=== PATIENT | female | born 1940 | race Caucasian/White ===

== ENCOUNTER 2025-10-03 07:23 | Day surgery (SDC) | payer MEDICARE, OTHER, SELFPAY ==
[2025-10-03] VITALS (11 sets, daily range): BP systolic 142–170; BP diastolic 76–98; PULSE 65–83; RESP 14–19; TEMP 36.2–36.9; O2SAT 92–100; BMI 20.9
--- NOTE | 2025-10-03 01:07 | W.PM.OPSFHP ---
Same Day Surgery H&P Indication for Procedure/HPI DATE OF PROCEDURE: October 03, 2025 CHIEF COMPLAINT/INDICATIONFOR SURGICAL PROCEDURE: postmenopausal bleeding PREOP DIAGNOSIS: postmenopausal bleeding PLANNED PROCEDURE: Operation Date: 10/03/25 09:00 Proposed Procedures p Hysteroscopy w/ Endometrial Sampling 38569 36191 N95.0 N93.9(Not Applicable) - Tab Martell MD s POSSIBLE Enodmetrial Poylpectomy(Not Applicable) - Tab Martell MD Medications/Allergies* Home Medications ?Medication ?Instructions ?Recorded ?Confirmed ?Type apixaban 5 mg tablet (Eliquis) 5 mg PO BID 08/02/25 10/02/25 History ascorbic acid (vitamin C) 1,000 mg 1,000 mg PO DAILY 08/02/25 10/02/25 History capsule aspirin 81 mg tablet 81 mg PO DAILY 08/02/25 10/02/25 History calcium carbonate 600 mg PO DAILY 08/02/25 10/02/25 History cholecalciferol (vitamin D3) 125 125 mcg PO DAILY 08/02/25 10/02/25 History mcg (5,000 unit) capsule lovastatin 40 mg tablet 40 mg PO DAILY 08/02/25 10/02/25 History metoprolol tartrate 25 mg tablet 100 mg PO DAILY 08/02/25 10/02/25 History omega-3 fatty acids 1,000 mg 1,000 mg PO DAILY 08/02/25 10/02/25 History capsule omeprazole 20 mg capsule,delayed 20 mg PO DAILY 08/02/25 10/02/25 History release Allergies/Adverse Reactions Allergy/AdvReac Type Severity Reaction Status Date / Time acetaminophen (From Contac Allergy Severe ALGY-Anaphy Verified 10/02/25 11:12 Cold-Flu Day and Night) laxis chlorpheniramine (From Allergy Severe ALGY-Anaphy Verified 10/02/25 11:12 Contac Cold-Flu Day and laxis Night) phenylephrine (From Contac Allergy Severe ALGY-Anaphy Verified 10/02/25 11:12 Cold-Flu Day and Night) laxis Pertinent History/Comorbid Conditions* Family History (Updated 08/02/25 @ 15:29 by Darne Ordoñez CNA) Heart disease Father Grandmother Grandfather Hyperlipidemia Father Sister Social History Smoking and tobacco/nicotine status: former use of tobacco/nicotine Pertinent Exam Findings alert, oriented x 3, clear to auscultation bilaterally and regular rate & rhythm Recommendations Surgery/Procedure today Coding Level of Care Code Acute Code for Chg Fwd
--- NOTE | 2025-10-03 09:44 | ANES.PREANE2 ---
Pre-Anesthetic Assessment Height/Weight: Height 1.6 m Weight 53.524 kg Temp Pulse Resp BP Pulse Ox O2 Del Method 98.4 F 65 17 170/89 98 Room Air 10/03/25 07:44 10/03/25 07:44 10/03/25 07:44 10/03/25 07:44 10/03/25 07:44 10/03/25 07:44 Preop Diagnosis: postmenopausal bleeding Operation Date: 10/03/25 09:00 Proposed Procedures p Hysteroscopy w/ Endometrial Sampling [id number] N95.0 N93.9(Not Applicable) - Tab Martell MD s POSSIBLE Enodmetrial Poylpectomy(Not Applicable) - Tab Martell MD Familial anesthetic complications: None Was Beta Reena taken within 24 hours: Yes Was Clonidine taken within 24 hours: N/A Last intake: Intake Last Liquid Date 10/02/25 Last Liquid Time 22:00 Last Solid Date 10/02/25 Last Solid Time 22:00 Social No alcohol and No tobacco Exam alert, oriented x 3, clear to auscultation bilaterally and regular rate & rhythm Airway Dentition: caps CV/HEM Atrial Fibrillation and Hypertension Metabolic Hyperlipidemia Anesthetic Plan ASA status: 3 Anesthesia: General Risk of > 500 ml blood loss (7ml/kg in children): No Medications/Allergies Home Medications ?Medication ?Instructions ?Recorded ?Confirmed ?Last Taken ?Type apixaban 5 mg tablet (Eliquis) 5 mg PO BID 08/02/25 10/02/25 09/27/25 History ascorbic acid (vitamin C) 1,000 mg 1,000 mg PO DAILY 08/02/25 10/02/25 10/02/25 History capsule aspirin 81 mg tablet 81 mg PO DAILY 08/02/25 10/02/25 09/27/25 History calcium carbonate 600 mg PO DAILY 08/02/25 10/02/25 10/02/25 History cholecalciferol (vitamin D3) 125 125 mcg PO DAILY 08/02/25 10/02/25 10/02/25 History mcg (5,000 unit) capsule lovastatin 40 mg tablet 40 mg PO DAILY 08/02/25 10/02/25 10/02/25 History metoprolol tartrate 25 mg tablet 100 mg PO DAILY 08/02/25 10/03/25 10/03/25 History omega-3 fatty acids 1,000 mg 1,000 mg PO DAILY 08/02/25 10/02/25 10/02/25 History capsule omeprazole 20 mg capsule,delayed 20 mg PO DAILY 08/02/25 10/02/25 10/02/25 History release Allergies Allergy/AdvReac Type Severity Reaction Status Date / Time acetaminophen (From Contac Allergy Severe ALGY-Anaphy Verified 10/02/25 11:12 Cold-Flu Day and Night) laxis chlorpheniramine (From Allergy Severe ALGY-Anaphy Verified 10/02/25 11:12 Contac Cold-Flu Day and laxis Night) phenylephrine (From Contac Allergy Severe ALGY-Anaphy Verified 10/02/25 11:12 Cold-Flu Day and Night) laxis PFSH Anesthesia Family History (Updated 08/02/25 @ 15:29 by Daren Ordoñez CNA) Father Heart disease Hyperlipidemia Sister Hyperlipidemia Grandmother Heart disease Grandfather Heart disease Social History Smoking and tobacco/nicotine status: former use of tobacco/nicotine
--- NOTE | 2025-10-03 09:48 | W.PM.OPSUD ---
Surgery/Procedure H&P Update DATE OF PROCEDURE: October 03, 2025 DATE H&P PERFORMED: 08/02/25 H&P UPDATE INFORMATION: I have reviewed H&P completed within last 30 days, I have examined patient prior to procedure and No changes to prior documentation PREOP DIAGNOSIS: postmenopausal bleeding PLANNED PROCEDURE: Operation Date: 10/03/25 09:00 Proposed Procedures p Hysteroscopy w/ Endometrial Sampling [id number] 27637 N95.0 N93.9(Not Applicable) - Tab Martell MD s POSSIBLE Enodmetrial Poylpectomy(Not Applicable) - Tab Martell MD
--- NOTE | 2025-10-03 11:50 | PM.OP ---
Operative Report Date of procedure: October 03, 2025 Pre-op diagnosis: postmenopausal bleeding Post-op diagnosis: same Post-op findings: Area of endometrial tissue near fundus Otherwise, minimal endometrial tissue Normal appearing cervix Procedure done: Hysteroscopy Endometrial sampling with Myosure Implants: none Specimens removed/disposition: endometrial tissue Surgeon: Tab Martell MD Anesthesia: MAC Estimated blood loss (mL): 0 Complications: none Findings: see above Condition: stable Disposition: PACU Brief History: 84 y.o. with postmenopausal bleeding Procedure: Patient was taken to the operating room. Anesthesia was induced. Patient was placed in dorsolithotomy position, prepped and draped for hysteroscopy. A bivalve speculum was placed in the vagina. The cervix and vagina were normal. The anterior lip of the cervix was grasped with a sharp-toothed tenaculum. The cervix was serially dilated with Hegar dilators. The uterus was sounded to 8 cm. A hysteroscope was placed into the endometrial cavity. There was an area of heaped-up area of endometrial tissue near the fundus. Otherwise, minimal endometrial tissue was seen. The endocervical canal was normal. A Myosure device was then inserted and the endometrial tissue was removed and sent to pathology. Endometrial sampling was also done. The endometrial cavity was seen to be intact. The hysteroscope and Myosure were then removed. Endometrial tissue was sent to pathology. The sharp-toothed tenaculum was removed. There was no bleeding from the endometrial cavity or cervix. The patient was then placed supine and awakened and taken to the PACU. Postop condition: stable EBL: none Sponge and instruments counts were normal x 2 Complications: none
--- NOTE | 2025-10-03 13:02 | ANE.PACU2 ---
Inpatient post-anesthesia follow up: Airway intact: Yes Vital signs: Temperature 97.5 F Pulse Rate 65 Respiratory Rate 17 Blood Pressure 154/96 Pulse Oximetry 98 Oxygen Delivery Me thod Room Air Oxygen Flow Rate 6 Fraction of Inspir ed Oxygen Hydration adequate: Yes Nausea and vomiting: No Pain level: 1 Mental status: Baseline
== END 2025-10-03 12:30 | disposition home or self-care (01) ==
PROVIDERS: PCP Family Medicine; Visit Provider Obstetrics & Gynecology
PROC: 0UJD8ZZ Inspection of Uterus and Cervix, Via Natural or Artificial Opening Endoscopic (ICD-10-PCS; CPT 58555; principal; 2025-10-03 09:00)
DX: N95.0 Postmenopausal bleeding (principal); Z79.82 Long term (current) use of aspirin; K21.9 Gastro-esophageal reflux disease without esophagitis; Z87.891 Personal history of nicotine dependence; I48.91 Unspecified atrial fibrillation; I10 Essential (primary) hypertension; E78.5 Hyperlipidemia, unspecified
CPT/HCPCS: 58558; 88305; J1100; J2405; J2704; J7030